=== PATIENT | female | born 1960 | race Caucasian/White ===

== ENCOUNTER → 2020-12-06 | Outpatient (CLI) | payer MEDICARE, OTHER ==
[~2020-12-06] MED LIST: ACTOS45 MG PO; CETIRIZINE HCL10 MG PO; CHLORTHALIDONE50 MG PO; DICLOFENAC GEL 1% TOP; LISINOPRIL5 MG PO; NITROGLYCERIN0.4 MG SL; NORVASC5 MG PO; VENTOLIN HFA 66.7 GM INH; VITAMIN D31250 MCG PO
== END ==
LOC: KOH-I 15:10
DX: M77.31 Calcaneal spur, right foot (principal); M72.2 Plantar fascial fibromatosis; M65.9 Synovitis and tenosynovitis, unspecified; R60.9 Edema, unspecified
CPT/HCPCS: 73718

== ENCOUNTER → 2020-12-13 | Outpatient (CLI) | payer MEDICARE, OTHER ==
[2020-12-13 10:07] LABS: HEMOGLOBIN 14.2 gm/dl (12.3-15.3); RED BLOOD COUNT 5.24 M/UL (4.00-5.10); WHITE BLOOD COUNT 5.9 K/UL (4.5-11.0)
== END ==
LOC: OPSV2 09:00
PROVIDERS: Podiatrist Foot & Ankle Surgery
DX: Z01.812 Encounter for preprocedural laboratory examination (principal)
CPT/HCPCS: 36415; 80048; 83036; 85027

== ENCOUNTER → 2020-12-17 | Outpatient (CLI) | payer MEDICARE, OTHER | END | disposition home or self-care (01) | LOC: US 14:00 | DX: Z01.810 Encounter for preprocedural cardiovascular examination (principal) | CPT/HCPCS: 93926 ==

== ENCOUNTER → 2020-12-22 | Day surgery (SDC) | payer MEDICARE, OTHER ==
[~2020-12-22] VITALS: Ht 147.3 cm; Wt 112.9 kg
== END | disposition home or self-care (01) ==
LOC: OR 05:33
DX: M77.31 Calcaneal spur, right foot (principal); M72.2 Plantar fascial fibromatosis; M62.461 Contracture of muscle, right lower leg; M65.871 Other synovitis and tenosynovitis, right ankle and foot; I12.9 Hypertensive chronic kidney disease with stage 1 through stage 4 chronic kidney disease, or unspecified chronic kidney disease; E11.22 Type 2 diabetes mellitus with diabetic chronic kidney disease; N18.2 Chronic kidney disease, stage 2 (mild); J45.909 Unspecified asthma, uncomplicated; K21.9 Gastro-esophageal reflux disease without esophagitis; M19.90 Unspecified osteoarthritis, unspecified site; Z88.8 Allergy status to other drugs, medicaments and biological substances; Z79.899 Other long term (current) drug therapy
CPT/HCPCS: 73620; 76000; 82962; J0690; J1100; J1885; J2001; J2250; J2405; J2704; J2795; J3010; J3370; J7030; J7120